=== PATIENT | male | born 1990 ===

== ENCOUNTER 2023-12-16 08:58 | Outpatient (REF) | payer BC, SELFPAY ==
[2023-12-16 20:07] LABS: ALT 44 U/L (16-63); AST 21 U/L (15-37); Albumin 4.3 g/dL (3.4-5.0); Alkaline Phosphatase 51 U/L (46-116); BUN 23 mg/dL (7-18); Bilirubin, Total 0.37 mg/dL (0.2-1.0); CREATININE 1.2 mg/dL (0.70-1.30); Calcium 9.4 mg/dL (8.5-10.1); Calculated LDL 102 mg/dL (<100); Chloride 108 mmol/L (98-107); Cholesterol 176 mg/dL (<200); Estimated GFR 80.88 (mL/min/1.73m2); Glucose 100 mg/dL (74-106); HDL Cholesterol 45 mg/dL (40-60); Potassium 4.5 mmol/L (3.5-5.1); Sodium 145 mmol/L (136-145); Total Protein 7.3 g/dL (6.4-8.2); Triglyceride 148 mg/dL (<150)
[2023-12-19 12:57] LABS: HIV-1/2 Ag & Ab Screen Negative (Negative)
[2023-12-20 13:21] LABS: Hepatitis C Ab w Rflx HCV PCR Negative (Negative)
== END 2023-12-16 08:59 | disposition home or self-care (01) ==
LOC: NCHCN 08:58
PROVIDERS: Visit Provider Physician Assistant
DX: Z11.4 Encounter for screening for human immunodeficiency virus [HIV] (principal); Z11.59 Encounter for screening for other viral diseases; Z13.220 Encounter for screening for lipoid disorders
CPT/HCPCS: 80053; 80061; 86803; 87389